=== PATIENT | female | born 1975 | race Two or more races ===

== ENCOUNTER 2023-11-21 06:08 | Day surgery (SDC) | payer OTHER ==
[2023-11-14 09:54] LABS: HEMATOCRIT 36.5 % (36.0-45.00); HEMOGLOBIN 12.8 g/dL (12.0-15.00); MEAN CELL VOLUME 86.4 fL (80.00-100.00); MEAN CORPUSCULAR HEMOGLOBIN 30.5 pg (27.00-32.0); MEAN CORPUSCULAR HGB CONC 35.2 g/dl (32.0-36.0); PLATELET COUNT 356 K/uL (150-450); RED BLOOD COUNT 4.22 M/uL (4.00-6.00); RED CELL DISTRIBUTION WIDTH 12.9 % (11.5-14.5)
[2023-11-14 10:00] LABS: PH,URINE 6.5 (5.0-8.0); URINE APPEARANCE Clear; URINE BILIRRUBIN Negative (NEGATIVE); URINE BLOOD Negative; URINE COLOR Yellow; URINE GLUCOSE Negative (NEGATIVE); URINE LEUKOCYTE Small; URINE NITRATE Negative; URINE PROTEIN Negative (NEGATIVE); URINE UROBILINOGEN 0.2 E.U./dl
[2023-11-14 10:04] LABS: URINE BACTERIA 1243.3 uL (0.0-1933); URINE EPITHELIAL CELLS 86.7 uL (0.0-38.8); URINE RBC 3.3 uL (0.0-20.8)
[2023-11-14 10:28] LABS: INR 0.96; PARTIAL THROMBOPLASTIN TIME 28.3 SECONDS (22.0-34.0); PROTHROMBIN TIME 10.1 SECONDS (9.0-11.5)
[2023-11-14 10:42] LABS: ALBUMIN 3.7 gm/dL (3.4-5.0); BILIRUBIN TOTAL 0.58 mg/dL (0.3-1.2); CALCIUM 9.2 mg/dL (8.5-10.1); CREATININE SERUM 0.7 mg/dL (0.55-1.02); GFR 89.69; GLOBULINA 3.9 G/DL (2.4-3.5); POTASSIUM 3.81 mEq/L (3.5-5.1); TOTAL PROTEIN 7.6 gm/dL (6.4-8.2)
[~2023-11-21] VITALS: Ht 160 cm; Wt 77.1 kg
[~2023-11-21 06:08] MED LIST: ATACAND HCT 321 EACH PO; CARVEDILOL12.5 MG; CRESTOR10 MG PO; CYMBALTA60 MG PO; LYRICA50 MG PO; METFORMIN HCL850 M1 PO; PEPCID AC10 MG PO; PRILOSEC OTC20 MG PO; SYNTHROID75 MCG PO
[2023-11-21] MEDS ORDERED: CIPROFLOXACIN IN 5 % DEXTROSE 400 MG/200 ML PIGGYBAG IV ONE (10:45)
[2023-11-21] MEDS ORDERED: ENOXAPARIN SODIUM 40 MG/0.4 ML SYRINGE SUBCUTANEO ONE (10:45)
[2023-11-21] MEDS ORDERED: TYLENOL325 MG PO (11:15)
[2023-11-21] MEDS ORDERED: PERCOCET 5-3251 EACH PO (11:15)
[2023-11-21] MEDS ORDERED: BACTRIM DS TAB1 EACH PO (11:17)
== END 2023-11-21 14:50 | disposition home or self-care (01) ==
LOC: CIR.AMB 06:08
PROVIDERS: ATTEND Surgery
DX: K42.9 Umbilical hernia without obstruction or gangrene (principal); K43.0 Incisional hernia with obstruction, without gangrene; Z88.6 Allergy status to analgesic agent; Z88.0 Allergy status to penicillin; E11.9 Type 2 diabetes mellitus without complications; I10 Essential (primary) hypertension; E03.9 Hypothyroidism, unspecified; K21.9 Gastro-esophageal reflux disease without esophagitis; E78.00 Pure hypercholesterolemia, unspecified